=== PATIENT | female | born 1955 | race Caucasian/White ===

== ENCOUNTER 2017-04-13 06:53 | Day surgery (SDC) | payer OTHER ==
[2017-04-13] MEDS ORDERED: Lactated Ringers 1,000 ML IV SCH (07:15)
[2017-04-13] MEDS ORDERED: Propofol 200 MG/20 ML SDV ONE (08:21)
[2017-04-13] MEDS ORDERED: fentaNYL 100 MCG/2 ML SDV ONE (08:21)
[2017-04-13] MEDS ORDERED: Midazolam 1 MG/ML 2 ML SDV ONE (08:21)
--- NOTE | 2017-04-13 10:50 | OR ---
DATE OF PROCEDURE: 04/13/2017 PREOPERATIVE DIAGNOSIS: Colon cancer screening. POSTOPERATIVE DIAGNOSIS: Small right colon polyp. PROCEDURE PERFORMED: Colonoscopy to the cecum with biopsy resection of small right colon polyp. SURGEON: Gerhard Fermin MD. ANESTHESIA: IV anesthesia with monitored anesthesia care. INDICATIONS: This 62-year-old white female was referred for a colonoscopy for colon cancer screening. She says her last colonoscopic exam was done ten years ago. I counseled her for the procedure, including risks and alternatives, and she gave her informed consent to proceed. DESCRIPTION OF PROCEDURE: The patient was placed in the left lateral decubitus position. IV anesthesia was administered by the Anesthesia Service. Time-out was held. A rectal exam was performed, which was unremarkable. The flexible video Olympus colonoscope was introduced through her anus, up her rectum, and out her colon all the way to the cecum. En route, in the proximal right colon, we saw a small polyp, which was removed with a few bites of a biopsy forceps. Once the cecum was reached, the scope was slowly withdrawn , examining the mucosa throughout. No additional mucosal abnormalities were noted. The scope was retroflexed in the rectum with the distal rectum showing some hemorrhoidal tissue, otherwise unremarkable. The scope was straightened and removed. She tolerated the procedure well. Gerhard Fermin MD /[id number] MTDD
== END 2017-04-13 10:30 ==
LOC: JP.SDS 06:53
PROVIDERS: ATTEND Surgery
DX: Z12.11 Encounter for screening for malignant neoplasm of colon (principal); D12.2 Benign neoplasm of ascending colon; E03.9 Hypothyroidism, unspecified; E66.9 Obesity, unspecified; Z68.30 Body mass index [BMI] 30.0-30.9, adult; Z88.8 Allergy status to other drugs, medicaments and biological substances
CPT/HCPCS: 45380; J2250; J2704; J3010; J7120; 88305

== ENCOUNTER 2020-04-12 06:21 | Day surgery (SDC) | payer MEDICARE, OTHER ==
[2020-04-12] MEDS ORDERED: Sodium Chloride 0.9% 1,000 ML IV SCH (07:00)
[2020-04-12] MEDS ORDERED: fentaNYL 100 MCG/2 ML SDV ONE (07:26)
[2020-04-12] MEDS ORDERED: Midazolam 1 MG/ML 2 ML SDV ONE (07:26)
[2020-04-12] MEDS ORDERED: Propofol 200 MG/20 ML SDV ONE (07:26)
--- NOTE | 2020-04-12 09:08 | OR ---
DATE OF PROCEDURE: 04/12/2020 SURGEON: Inocencio Livingston MD PROCEDURE: Colonoscopy. FINDINGS: Normal colonoscopy. COMPLICATIONS: None. ALARM INSTALLER: None. ANESTHESIA: MAC. PREOPERATIVE DIAGNOSIS: Screening colonoscopy. POSTOPERATIVE DIAGNOSIS: Screening colonoscopy. RISKS: Risks, benefits, alternatives, and limitations including, but not limited to infection, bleeding, and perforation were explained to the patient who wished to proceed. We discussed false positives, false negatives, and other risks. PROCEDURE IN DETAIL: The patient was placed in left lateral decubitus position. Digital rectal exam was performed without abnormality. Scope was introduced and advanced atraumatically to the ileocecal valve. Photo was taken of this. scope was brought back to the ascending, transverse, descending colon, and retroflexed. No old or new blood. No masses. No polyps. Greater than 10 minutes was spent removing the scope. The patient tolerated the procedure well. Inocencio Livingston MD /[id number]
== END 2020-04-12 09:05 | disposition home or self-care (01) ==
LOC: JP.SDS 06:21
PROVIDERS: ATTEND Surgery
DX: Z12.11 Encounter for screening for malignant neoplasm of colon (principal)
CPT/HCPCS: G0121; J2250; J2704; J3010; J7030